=== PATIENT | female | born 1970 | race Caucasian/White ===

== ENCOUNTER 2018-01-23 07:11 | Day surgery (SDC) | payer MEDICAID ==
[2018-01-17 10:14] LABS: BASOPHILS % (AUTO) 0.3 % (0-1); EOSINOPHILS # (AUTO) 0.1 X10'3 (0-0.9); EOSINOPHILS % (AUTO) 2.4 % (0-6); LYMPHOCYTES # (AUTO) 1.3 X10'3 (1.1-4.8); LYMPHOCYTES % (AUTO) 22.1 % (21-51); MEAN CORPUSCULAR HEMOGLOBIN 30.5 PG (27.0-31.0); MEAN CORPUSCULAR HGB CONC 35.1 % (33.0-36.5); MEAN CORPUSCULAR VOLUME 86.9 FL (78-98); MEAN PLATELET VOLUME 7.8 FL (7.4-10.4); MONOCYTES # (AUTO) 0.4 X10'3 (0-0.9); MONOCYTES % (AUTO) 7.3 % (2-12); NEUTROPHILS # (AUTO) 4.1 X10'3 (1.8-7.7); NEUTROPHILS % (AUTO) 67.9 % (42-75); PRE OP HEMATOCRIT 36.6 % (35.0-45.0); PRE OP HEMOGLOBIN 12.8 g/dL (12.0-16.0); PRE OP PLATELET COUNT 235 X10'3 (140-440); RED BLOOD COUNT 4.21 X10'6 (4.20-5.60)
[2018-01-17 10:25] LABS: PRE OP PROTIME 10.2 SECONDS (9.0-12.0)
[2018-01-17 10:30] LABS: ALBUMIN 3.8 G/DL (3.4-5.0); ALKALINE PHOSPHATASE 65 IU/L (46-116); BLOOD UREA NITROGEN 28 MG/DL (7-18); BUN/CREATININE RATIO 34.6 (6.6-38.0); CHLORIDE 107 MMOL/L (99-107); CREATININE 0.81 MG/DL (0.40-0.90); PRE OP ALT 24 U/L (30-65); PRE OP ANION GAP 7 (8-16); PRE OP AST 13 U/L (10-37); PRE OP BILIRUB, TOTAL 0.3 MG/DL (0.0-1.0); PRE OP GLUCOSE 92 MG/DL (70-104); PRE OP POTASSIUM 3.8 MMOL/L (3.4-5.1); PRE OP SODIUM 144 MMOL/L (135-145); TOTAL CARBON DIOXIDE 29.6 MMOL/L (24-32); TOTAL PROTEIN 7.5 G/DL (6.4-8.2); eGFR 75 ML/MIN
[2018-01-17 10:43] LABS: CLARITY,URINE SLIGHTLY CLOUDY (Clear); COLOR,URINE STRAW (Yellow); GLUCOSE, URINE NEGATIVE (Neg); KETONES,URINE NEGATIVE (Neg); LEUKOCYTE ESTERASE ,URINE NEGATIVE (Neg); NITRITES, URINE NEGATIVE (Neg); OCCULT BLOOD,URINE NEGATIVE (Neg); PROTEIN,URINE NEGATIVE (Neg); UROBILINOGEN,URINE 0.2 E.U/dL (0.2-1.0)
[2018-01-17 10:51] LABS: UA COLLECTION TYPE CLN CATCH MIDSTREAM
[2018-01-17 10:52] LABS: MUCUS STRANDS FEW /LPF (Neg); SQUAMOUS EPITHELIAL CELL,UR MODERATE /LPF (FEW)
[2018-01-17 10:53] LABS: BACTERIA,URINE 1+ /HPF (Neg); RBC,URINE 0-2 /HPF (0-2); WBC,URINE 0-4 /HPF (0-4)
[2018-01-23] VITALS (13 sets, daily range): BP systolic 137–180; BP diastolic 72–108
[~2018-01-23] VITALS: Ht 175.3 cm; Wt 85.0 kg
[~2018-01-23 07:11] MED LIST: CALC0.253 PO; CARV3.122 PO; DOCUMENT DATE & TIME OF BETA-BLOCKER PO ONE; LEVO112T5 PO; LISI2.5T2 PO; SPIR25TA3 PO; ceFAZolin inj. 2,000 MG in dextrose 5%-water 100 ML IV ONE; cefazolin/dext.iso 2gm/50ml 50 ML IV ONE; famotidine 20mg tablet PO ONE; ringers solution, lacted 1,000 ML IV SCH
[2018-01-23] MEDS ORDERED: carVEDilol 3.125mg tablet PO ONE (08:15)
[2018-01-23] MEDS ORDERED: LIDOcaine 1% (10mg/ml) 2ml vial ONE (10:32)
[2018-01-23] MEDS ORDERED: fentaNYL /PF 50mcg/ml 5ml ampule ONE (10:33)
[2018-01-23] MEDS ORDERED: midazolam 2 mg/2 ml injection ONE (10:33)
[2018-01-23] MEDS ORDERED: glycopyrrolate 0.2mg/ml inj ONE (10:35)
[2018-01-23] MEDS ORDERED: neostigmine methylsulfate 1 MG/ML 10ml vial ONE (10:35)
[2018-01-23] MEDS ORDERED: sevoflurane 250ml liquid IH ONE (10:35)
[2018-01-23] MEDS ORDERED: ketorolac trometh. 30mg/ml inj. ONE (10:35)
[2018-01-23] MEDS ORDERED: etomidate 2mg/ml inj. ONE (10:38)
[2018-01-23] MEDS ORDERED: ringers solution, lacted 1,000 ML IV SCH (11:39)
[2018-01-23] MEDS ORDERED: proCHLORperazine 10 MG/2 ml inj IV PRN (11:40)
[2018-01-23] MEDS ORDERED: meperidine/PF 50mg/ml syringe IV PRN (11:40)
[2018-01-23] MEDS ORDERED: fentaNYL/PF 50MCG/1 ML 2ML syringe IV PRN ×2 (11:40)
[2018-01-23] MEDS ORDERED: HYDROmorphone inj. 0.5 MG/0.5 ML DISP.SYRIN IV PRN ×2 (11:40)
[2018-01-23] MEDS ORDERED: ondansetron/PF 4mg/2ml inj IV PRN (11:40)
[2018-01-23] MEDS ORDERED: hydrALAZINE 20mg/ml inj. IV ONE ×2 (12:25→12:29)
[2018-01-23] MEDS ORDERED: propofol inj 20 ML IV ONE (12:26)
[2018-01-23] MEDS ORDERED: ePHEDrine 50MG/ML INJ. ONE (12:27)
[2018-01-23] MEDS ORDERED: phenylephrine 10mg/ml inj IV ONE (12:27)
[2018-01-23] MEDS ORDERED: dexamethasone sod phosphate 4mg/ml inj. ONE (12:27)
== END 2018-01-23 14:09 | disposition home or self-care (01) ==
LOC: PAS 07:11
PROVIDERS: ATTEND Surgery
DX: K80.10 Calculus of gallbladder with chronic cholecystitis without obstruction (principal); I11.0 Hypertensive heart disease with heart failure; I50.9 Heart failure, unspecified; E03.9 Hypothyroidism, unspecified; Z87.891 Personal history of nicotine dependence; Z72.89 Other problems related to lifestyle; Z90.89 Acquired absence of other organs; Z85.850 Personal history of malignant neoplasm of thyroid; Z79.899 Other long term (current) drug therapy
CPT/HCPCS: 36415; 47562; 71046; 80053; 81001; 85025; 85610; 85730; 93005; A6251; A6258; A6449; J0360; J0690; J0780; J1100; J1885; J2250; J2370; J2405; J2704; J2710; J3010; J3490; J7030; J7060; J7120; A7000

== ENCOUNTER 2023-09-04 05:48 | Emergency (ER) | payer MEDICAID ==
[~2023-09-04] VITALS: Ht 175.3 cm; Wt 92.3 kg
[~2023-09-04 05:48] MED LIST changes: -DOCUMENT DATE & TIME OF BETA-BLOCKER PO ONE; +LISI2.5T14 PO; -LISI2.5T2 PO; -SPIR25TA3 PO; +SPIR25TA5 PO; -ceFAZolin inj. 2,000 MG in dextrose 5%-water 100 ML IV ONE; -cefazolin/dext.iso 2gm/50ml 50 ML IV ONE; -famotidine 20mg tablet PO ONE; -ringers solution, lacted 1,000 ML IV SCH
[2023-09-04 05:50] VITALS: BP 142/99; PULSE 79; RESP 16; TEMP 98.7; O2SAT 99
[2023-09-04] MEDS ORDERED: dexamethasone sod phosphate 10mg/ml inj IV STA (06:09)
[2023-09-04] MEDS ORDERED: diphenhydrAMINE 50 mg/ml inj IV ONE (06:10)
[2023-09-04] MEDS ORDERED: famotidine/PF 10 mg/ml inj IV ONE (06:10)
[2023-09-04] MEDS ORDERED: DEC4T PO (08:58)
[2023-09-04] MEDS ORDERED: FAMO-128 PO (09:00)
[2023-09-04] MEDS ORDERED: DIPH25CA53 PO (09:02)
== END 2023-09-04 09:14 | disposition home or self-care (01) ==
LOC: ER 05:49
DX: L50.9 Urticaria, unspecified (principal); I50.9 Heart failure, unspecified; Z79.899 Other long term (current) drug therapy
CPT/HCPCS: 96374; 96375; 99284; J1100; J1200; J3490

== ENCOUNTER 2023-09-13 06:55 | Emergency (ER) | payer MEDICAID ==
[~2023-09-13] VITALS: Ht 176.5 cm; Wt 91.8 kg
[~2023-09-13 06:55] MED LIST changes: +DEC4T PO; +DIPH25CA53 PO; +FAMO-128 PO
[2023-09-13 07:21] VITALS: BP 123/72; PULSE 80; RESP 20; TEMP 97.8; O2SAT 97
[2023-09-13] MEDS ORDERED: dexamethasone sod phosphate 10mg/ml inj PO STA (08:06)
[2023-09-13] MEDS ORDERED: PRED20TA PO (08:09)
[2023-09-13] MEDS ORDERED: diphenhydrAMINE 25mg capsule PO ONE (08:10)
== END 2023-09-13 08:19 | disposition home or self-care (01) ==
LOC: ER 06:55
DX: L50.9 Urticaria, unspecified (principal); I50.9 Heart failure, unspecified; Z79.899 Other long term (current) drug therapy
CPT/HCPCS: 99283; J1100; Q0163

== ENCOUNTER 2024-01-11 07:25 | Emergency (ER) | payer MEDICAID, OTHER ==
[~2024-01-11] VITALS: Ht 175.3 cm; Wt 97.5 kg
[2024-01-11] MEDS ORDERED: PRED10TA23 PO (09:47)
[2024-01-11] MEDS: dexamethasone sod phosphate 10mg/ml inj PO STA (09:53)
[2024-01-11 10:05] VITALS: BP 164/95; PULSE 72; RESP 16; TEMP 98; O2SAT 99
== END 2024-01-11 10:08 | disposition home or self-care (01) ==
LOC: ER 07:26
DX: L50.9 Urticaria, unspecified (principal); I50.9 Heart failure, unspecified; Z79.899 Other long term (current) drug therapy
CPT/HCPCS: 99283; J1100